=== PATIENT | female | born 1965 | race Caucasian/White ===

== ENCOUNTER → 2018-12-09 07:05 | Outpatient (CLI) | payer OTHER ==
[~2018-12-09 07:05] MED LIST: BENADRYL25 MG PO; FEXOFENADINE H180 MG PO; HYDROCODON-ACE1 EA10 PO; PROTONIX40 MG PO
[2018-12-09 08:07] LABS: ALBUMIN 3.7 g/dL (3.4-5.0); BILIRUBIN - DIRECT 0.15 mg/dL (0.00-0.30); BILIRUBIN - INDIRECT 0.32 mg/dL (0.00-1.00); BILIRUBIN - TOTAL 0.47 mg/dL (0.2-1.3); PROTEIN - SERUM 7.3 g/dL (6.4-8.2)
[2018-12-17 11:00] VITALS: BMI 25.5
== END | disposition home or self-care (01) ==
LOC: D.US 07:05
PROVIDERS: Internal Medicine Gastroenterology
DX: K76.0 Fatty (change of) liver, not elsewhere classified (principal); K83.8 Other specified diseases of biliary tract; K80.80 Other cholelithiasis without obstruction

== ENCOUNTER 2018-12-17 08:59 | Day surgery (SDC) | payer OTHER ==
[~2018-12-17] VITALS: Ht 167.6 cm; Wt 71.7 kg
[~2018-12-17 08:59] MED LIST changes: -HYDROCODON-ACE1 EA10 PO
[2018-12-17 09:30] LABS: BASOPHILS 0.3 % (0-2); EOSINOPHILS 2.2 % (0-7); HEMATOCRIT 44.9 % (36.0-48.0); IMMATURE GRANULOCYTES 0.3 % (0-5); LYMPHOCYTES 38.8 % (15-50); MCH 29.4 pg (26.0-34.0); MCHC 33.4 g/dL (31.0-37.0); MCV 87.9 fL (80.0-100.0); MONOCYTES 11.2 % (2-11); NEUTROPHILS 47.2 % (40-80); PLATELET COUNT 272 10x3/uL (130-400); RBC 5.11 10x6/uL (4.00-5.40); RDW 12.6 % (11.5-14.5); WBC 6.3 10x3/uL (4.8-10.8)
[2018-12-17 09:44] LABS: CALC OSMOLALITY 285 mosm/kg (275-300); CALCIUM 8.9 mg/dL (8.5-10.1); CARBON DIOXIDE 30.8 mmol/L (21.0-32.0); CHLORIDE - SERUM 105 mmol/L (98-107); CREATININE - SERUM 0.7 mg/dL (0.6-1.3); GLUCOSE 95 mg/dL (74-106); POTASSIUM - SERUM 4.4 mmol/L (3.5-5.1); SODIUM 143 mmol/L (136-145); UREA NITROGEN 14 mg/dL (7-18); eGFR NON AFRICAN AMERICAN > 90 mL/min (90-120)
[2018-12-17 11:00] VITALS: BP 131/85; Ht 167.6 cm; Wt 71.7 kg
[2018-12-17] MEDS ORDERED: HYDROCODON-ACE1 EA10 PO (12:26)
--- NOTE | 2018-12-17 13:18 | NUR ---
PATIENT READY FOR DISCHARGE FROM RECOVERY ROOM. SWITCHED TO PHASE II MONITORING PROTOCOLS.
--- NOTE | 2018-12-17 13:46 | NUR ---
PATIENT MOVED TO ANTE ROOM IN PACU FOR PRE-DISCHARGE. PATIENT VITAL SIGNS STABLE
--- NOTE | 2018-12-17 14:14 | NUR ---
PATIENT NAUSEATED. NOTIFIED ANESTHESIA. GIVEN ORDERS PER DR. SHELDON TO GIVE 300 ML BOLUS OF FLUID AND 4 MG ZOFRAN IV NOW IN THE PHASE II RECOVERY TO PATIENT. WILL CONTINUE TO MONITOR.
--- NOTE | 2018-12-17 14:29 | NUR ---
AT 1420 CONSULTED ANESTHESIA REGARDING RAITING PAIN 05/29. VERBAL ORDERS RECEIVED FROM DR SHELDON TO ADMINISTER HYDROCODONE 10/325MG PO X1 IN PACU NOW. PATIENT IS IN PHASE TWO. WILL CONTINUE TO MONITOR.
--- NOTE | 2018-12-17 16:02 | NUR ---
AT [address] LEAL REGARDING PERSISTENT VOMITING. VERBAL ORDERS RECEIVED TO ADMINISTER PHENERGAN 25MG IM X1 IN PACU NOW. VERBAL ORDERS TO CALL IN PHENERGAN 25MG TAKE ONE BY MOUTH EVERY SIX HOURS NEEDED FOR NAUSEA AND VOMITING. DISPENSE #10. THIS WAS CALLED IN TO [facility].
--- NOTE | 2018-12-17 19:41 | NUR ---
PATIENT WAS RECOVERED IN PACU AND DISCHARGED FROM PACU.
--- NOTE | 2018-12-18 09:01 | OP ---
PATIENT NAME: JAROCHO BRIONES MEDICAL RECORD: [id number] :65 LOCATION:D.OPS ADMISSION DATE: SURGEON: MONTANA LEAL MD DATE OF OPERATION: 12/17/2018 PREOPERATIVE DIAGNOSES: 1. Gallstones. 2. Ventral hernia. 3. Renal cyst. POSTOPERATIVE DIAGNOSES: 1. Gallstones. 2. Ventral hernia. 3. Renal cyst. PROCEDURES: 1. Laparoscopic cholecystectomy. 2. Ventral hernia repair without mesh. SURGEON: Montana Leal MD REPORT OF PROCEDURE: The patient's abdomen was prepped and draped in sterile fashion. A cutdown was made in a semi-circular fashion on the inferior aspect of the umbilicus through an old scar. Electrocautery was used to dissect through the subcutaneous tissues and the hernia sac that was based just below the umbilicus. Once this was freed up, we could find the hernia defect, which was fat containing. It was approximately 1.5 cm to 2 cm in greatest diameter. I bluntly entered the abdominal cavity. Vicryls #0 were placed in the fascia bilaterally and then the 12-mm Jennifer port was placed through the hernia defect into the abdominal cavity. After insufflation was obtained, a 5-mm trocar was placed in the epigastrium and two more 5-mm trocars were placed in the right subcostal region. The gallbladder was elevated. There was no sign of any acute inflammatory changes. There was an adhesion of the duodenum to the gallbladder, which was taken down with sharp dissection. The cystic artery and cystic duct were dissected free. This was clipped proximally and distally and ligated in standard fashion. The gallbladder was then taken off the liver bed using electrocautery and placed into the right upper quadrant. Any bleeding from the liver bed was treated with electrocautery. We then irrigated out the right upper quadrant and assured there was no sign of any bleeding or bile leakage. At this point, the ports and insufflation were then removed and the gallbladder was taken out through the umbilicus. The umbilical fascia was closed transversely using interrupted #0 Prolenes times 6 to reapproximate the edges of the hernia defect. The wound was then irrigated out thoroughly with normal saline. The umbilicus was tacked down to the fascia using an interrupted 3-0 Vicryl. The subcutaneous tissues were then reapproximated with interrupted 3-0 Vicryl. A 10 mL of 0.25% Marcaine plain was infused into the surrounding tissues. The skin incisions were then closed with running subcutaneous 5-0 Monocryl. COMPLICATIONS: None. CONDITION: Stable. ANESTHESIA: General endotracheal and local. OPERATIVE REPORT [id number] JAROCHO BRIONES BLOOD LOSS: Minimal. TRANSINT:[id number] Voice Confirmation ID: [id number] DOCUMENT ID: [id number] cc: David Elkins---not found. MONTANA LEAL MD at 0901 CC: JANETH SANCHEZ DO [id number] DICTATION DATE: 12/17/18 1231 PHYSICIANS ASSISTANT: 12/17/18 1328 [facility] 12/17/18 [id number] [place] [address]
== END 2018-12-17 16:20 | disposition home or self-care (01) ==
LOC: D.OPS 08:59
PROVIDERS: ATTEND Surgery
DX: K80.10 Calculus of gallbladder with chronic cholecystitis without obstruction (principal); K43.9 Ventral hernia without obstruction or gangrene; N28.1 Cyst of kidney, acquired; Z01.812 Encounter for preprocedural laboratory examination